=== PATIENT | female | born 1960 | race Caucasian/White ===

== ENCOUNTER 2017-02-13 12:40 | Emergency (ER) | payer OTHER ==
[2017-02-13 12:57] VITALS: BP 153/85
--- NOTE | 2017-02-13 15:09 | ERNOTE ---
Trauma/Assault HPI - Narrative Date of Service: 02/13/17 - General Stated Complaint: FALL FRIDAY-CHEST PAIN Time Seen by Provider: 02/13/17 15:06 Source: patient, RN notes reviewed Exam Limitations: no limitations - Immun/Allergies/Home Medications Immunizations: IMMUNIZATION HX Immunizations Up to Date Yes History of Influenza Vaccine No Hx Pneumococcal Vaccination No Allergies/Adverse Reactions: Allergies naproxen Adverse Reaction (Mild, Verified 08/04/16 21:22) SEVERE STOMACH ACHE AND VOMITING penicillin V potassium [From Pen-Vee K] Adverse Reaction (Mild, Verified 21:22) SEVERE STOMACH ACHE AND VOMITING Home Medications: HOME MEDICATIONS ALPRAZolam [Xanax] 0.5 mg PO DAILY PRN 09/13/15 [Last Taken Unknown] Tiotropium [place] [Spiriva] 1 cap IH DAILY 09/13/15 [Last Taken Unknown] amLODIPine BESYLATE [Norvasc] 5 mg PO DAILY 09/14/15 [Last Taken Unknown] Albuterol Sulfate 2.5 mg IH Q6H PRN 05/28/16 [Last Taken Unknown] Albuterol Sulfate [Ventolin Hfa] 1 - 2 puff IH Q4H PRN 05/28/16 [Last Taken Unknown] Aspirin [Aspirin Enteric Coated] 81 mg PO DAILY 05/28/16 [Last Taken Unknown] Fluticasone Propionate [Flonase] 2 spray NS DAILY 05/28/16 [Last Taken Unknown] Loratadine [Claritin] 10 mg PO DAILY 05/28/16 [Last Taken Unknown] - History of Present Illness Date (Duration): 02/11/17 Narrative: Amena is a 56-year-old female ambulatory to the emergency department for right anterior rib pain due to a fall 2 days ago. The fall occurred while she was walking with a friend. A dog tried to attack her friend, and she fell while trying to keep the dog from attacking. She denies any other injuries. She has not been taking anything for pain. Location Occurred: Reports: street Pain Location: Reports: chest Method of Injury: Reports: fall Loss of Consciousness: Reports: no loss of consciousness, remembers the event Associated Symptoms - Trauma: Denies: headache, dizziness, lightheadedness, trouble walking, neck pain, shortness of breath, abdominal pain, nausea, vomiting Review of Systems - Review of Systems Constitutional: Absent: recent illness, fever, malaise EYE: Present: no symptoms reported ENT: Present: no symptoms reported Respiratory: Present: cough. Absent: shortness of breath, wheezing Cardiology: Absent: palpitations, syncope, edema Gastrointestinal/Abdominal: Absent: nausea, vomiting, abdominal pain Genitourinary: Absent: dysuria, hematuria Musculoskeletal: Absent: back pain, neck pain, joint pain Skin: Absent: rash, lesions, lumps, change in color Neurological: Absent: headache, dizziness/light-headedness, weakness, numbness, tingling Endocrine: Present: no symptoms reported Hematologic/Lymphatic: Absent: easy bruising, easy bleeding Psych: Present: no symptoms reported - Patient's Past Medical History Patient History - Medical: Anxiety, Other Patient History - Cardiac/Respiratory: No pertinent hx, COPD, Hypertension Patient History - Cancer: Breast Patient History - Surgical Procedures: Cancer Surgery, Cataracts, Cholecystectomy, Colonoscopy, EGD, Other Patient History - Other: None LMP (females 10-50): Menopausal - Family History Father Family History - Medical: , No pertinent hx Family History - Cardiac/Respiratory: No pertinent hx Mother Family History - Medical: Diabetes Type 2 Family History - Cardiac/Respiratory: Hypertension Brother Family History - Medical: Diabetes Type 2 Family History - Cardiac/Respiratory: Hypertension Sister Family History - Medical: Diabetes Type 2 Family History - Cardiac/Respiratory: Hypertension - Social History Living Situations: home Abuse History: No History of abuse Psych History: Hx of Anxiety, Current tx/ever been on anti-depressants or anti- anxiety meds Smoking Status: Current every day smoker Alcohol Use: none Drug Use: none - Immunizations Immunizations Up to Date: Yes Hx Pneumococcal Vaccination: No History of Influenza Vaccine: No Physical Exam - Physical Exam General Appearance: Present: wd/wn, alert, no apparent distress Neck: Present: normal inspection, nontender, supple, full range of motion Respiratory: Present: no respiratory distress, normal breath sounds, no accessory muscle use, lungs clear, chest tenderness - right anterior ribs Cardiovascular/Chest: Present: regular rate, rhythm, no murmur, normal peripheral pulses Gastrointestinal/Abdominal: Present: nontender, nondistended, soft Back Exam: Present: normal inspection, normal range of motion, no CVA tenderness , no vertebral tenderness Extremity Exam: Present: normal inspection, normal range of motion, no edema Neurological Exam: Present: alert, oriented, normal mood/affect, no motor/ sensory deficits Skin Exam: Present: normal color, warm/dry ED Progress - Vital Signs Patient's Vital Signs:: I have reviewed the patient's vital signs. Vital Signs: Vital Signs 02/13/17 12:53 Temperature 36.8 C Pulse Rate 88 Respiratory 18 Rate Blood Pressure 153/85 O2 Sat by Pulse 96 Oximetry - X-Ray X-Ray #1 X-Ray: ribs Interpretation: Reviewed by me X-ray Comments: TECHNIQUE: 4 views of the Right sided ribs. COMPARISONS: None available. Ribs Unilateral RT * No definable linear fracture lucency or cortical discontinuity noted. Visualized portions of the chest demonstrates calcified aorta suggestive of atherosclerotic disease. No focal finding. Surgical clips are seen in the right upper quadrant. IMPRESSION: 1. No definable rib fracture noted. 2. Additional comments are as above. Electronically signed by Isabelle Galvan M.D.. - Progress/Reassessment Chief Complaint: Fall Progress:: Unchanged Progress Note-Subjective: Offered rx for pain medication, patient states she does not tolerate well, does have a muscle relaxant at home, suggested trying this at least at HS. Departure Clinical Impression: Rib pain on right side Fall Qualifiers: Encounter type: initial encounter Qualified Code(s): W19.XXXA - Unspecified fall, initial encounter - Departure Disposition: Home self-care Condition: Good Instructions: Rib Contusion Additional Instructions: Tylenol and/or ibuprofen for pain Can also try muscle relaxant at bedtime Heat to sore area Referrals: Monica Armas FNP [Primary Care Provider] -
--- OUTSIDE RECORDS SUMMARY | 2017-02-13 15:19 | XMS REPORT | Continuity of Care Document ---
:1960 Author Organization [facility] ([facility]) Address [address] [place] [address] Phone [phone] Care Team Providers Name Role Phone Celio Andrade Primary Care Provider [phone] Source Comments This disclosure is being made pursuant to the Care Everywhere program, applicable federal and state laws, and may not contain all informaitonavailable regarding this patient.[facility] ([facility]) Active Allergies and Adverse Reactions Allergen Noted Date Severity Reactions Comments Bacitracin Nausea & Vomiting Patient doesn't know the name of antibiotic. Naproxen Nausea & Vomiting Neomycin Nausea & Vomiting Patient doesn't know the name of antibiotic. Penicillins Nausea & Vomiting Polymyxin B Nausea & Vomiting Patient doesn't know the name of antibiotic. Tramadol Hcl Nausea & Vomiting Trazodone Nausea & Vomiting Current Medications Prescription Sig. Disp. Refills Start Date End Date Status metoPROLol succinate 25 Take 1 Tab (25 mg 30 Tab 11 04/12/2015 Active mg XL tablet total) by mouth daily aspirin 81 mg EC tablet Take 1 Tab (81 mg 04/12/2015 Active total) by mouth daily Active Problems Problem Noted Date Essential hypertension 04/12/2015 Chronic hepatitis C without mention of hepatic coma 04/01/2008 Overview: Genotype 1 DIAGNOSIS: Liver, needle biopsy ([id number]; 05/12/08): Chronic hepatitis C with moderate activity and severe bridging fibrosis. Gallbladder, cholecystectomy: Chronic cholecystitis. Cholelithiasis. Comment: Ricky Mccrary M.D. Date reported: 05/27/08 Pathologist (Electronic Signature) Resolved Problems Problem Noted Date Resolved Date Cirrhosis 02/22/2009 11/30/2009 Immunizations Name Dates Previously Given Next Due Influenza, PF 09/06/2009 Influenza, unspecified 07/29/2008 Novel Influenza H1N1 09/06/2009 Social History Tobacco Use Types Packs/Day Years Used Date Current Every Day Smoker Last Filed Vital Signs Vital Sign Reading Time Taken Blood Pressure 123/65 04/19/2015 4:54 PM CDT Pulse 61 04/19/2015 4:24 PM CDT Temperature 36.2 C (97.2 F) 04/19/2015 9:03 AM CDT Respiratory Rate 18 04/19/2015 12:43 PM CDT Height 1.6 m (5' 2.99") 04/19/2015 9:03 AM CDT Weight 68.493 kg (151 lb) 04/19/2015 9:03 AM CDT Body Mass Index 26.76 04/19/2015 9:03 AM CDT Oxygen Saturation 97% 04/19/2015 4:54 PM CDT Plan of Care Health Maintenance Due Date Last Done Comments HCV Screening 1960 Hepatitis B Vaccine (1 of 3 - Primary 1960 Series) Tdap Vaccine 1969 MMR Vaccine 1976 Td Vaccine 1976 Pneumococcal Vaccine (1 of 1 - PPSV23) 1977 Cervical Cancer Screening 1988 Mammogram 1998 Colonoscopy 06/20/2008 Influenza Vaccine: Seasonal (#1) 04/22/2016 09/06/2009, 07/29/2008 Lipid Disorder Screening 04/19/2020 04/19/2015 Results from Last 3 Months Not on file
== END 2017-02-13 15:29 | disposition home or self-care (01) ==
LOC: ER 12:40
DX: R07.81 Pleurodynia (principal); F17.200 Nicotine dependence, unspecified, uncomplicated; W18.31XA Fall on same level due to stepping on an object, initial encounter; Y93.01 Activity, walking, marching and hiking; Y92.414 Local residential or business street as the place of occurrence of the external cause

== ENCOUNTER 2017-03-24 08:49 | Observation (INO) | payer OTHER ==
[2017-03-24] MEDS ORDERED: KETOROLAC TROMETHAMINE 30 MG/ML VIAL IV ONE (09:17)
[2017-03-24] MEDS ORDERED: NORMAL SALINE 1,000 ML IV ONE (09:17)
[2017-03-24] MEDS ORDERED: KETOROLAC TROMETHAMINE 30 MG/ML VIAL ONE (09:19)
--- NOTE | 2017-03-24 09:21 | ERNOTE ---
ENT HPI Presenting Symptoms: other - throat swelling Time Seen by Provider: 03/24/17 09:06 Source: patient Exam Limitations: no limitations - Immun/Allergies/Home Medications Immunizations: IMMUNIZATION HX Immunizations Up to Date Yes History of Influenza Vaccine No Hx Pneumococcal Vaccination No Allergies/Adverse Reactions: Allergies Allergy/AdvReac Type Severity Reaction Status Date / Time naproxen AdvReac Mild SEVERE Verified 03/24/17 14:25 STOMACH ACHE AND VOMITING penicillin V potassium AdvReac Mild SEVERE Verified 03/24/17 14:25 [From Pen-Vee K] STOMACH ACHE AND VOMITING Home Medications: HOME MEDICATIONS Tiotropium [place] [Spiriva] 1 cap IH DAILY 09/13/15 [Last Taken 03/23/17 09:00] amLODIPine BESYLATE [Norvasc] 5 mg PO DAILY 09/14/15 [Last Taken Unknown] Albuterol Sulfate 2.5 mg IH Q6H PRN 05/28/16 [Last Taken 03/23/17 03:00] Albuterol Sulfate [Ventolin Hfa] 1 - 2 puff IH Q4H PRN 05/28/16 [Last Taken Unknown] Aspirin [Aspirin Enteric Coated] 81 mg PO DAILY 05/28/16 [Last Taken 03/24/17 09 :00] Fluticasone Propionate [Flonase] 2 spray NS PRN 05/28/16 [Last Taken Unknown] Loratadine [Claritin] 10 mg PO PRN 05/28/16 [Last Taken Unknown] - History of Present Illness Narrative: Patient started with a sore throat four days ago, was seen in the walk in clinic three days ago, given 'an antibiotic shot' and antibiotic pills. She initially had a fever up to 103 which has resolved, but she continues to have severe throat pain and swelling, has been unable to eat or drink and at times is spitting out her saliva as well. Review of Systems - Review of Systems Constitutional: Present: See HPI, recent illness, fever, chills ENT: Present: throat swelling. Absent: ear pain, nasal drainage Respiratory: Absent: shortness of breath, cough Cardiology: Absent: chest pain Gastrointestinal/Abdominal: Absent: nausea, vomiting, diarrhea, abdominal pain Genitourinary: Present: no symptoms reported Musculoskeletal: Absent: back pain, neck pain Neurological: Present: no symptoms reported - Patient's Past Medical History Patient History - Medical: Anxiety, Other Patient History - Cardiac/Respiratory: No pertinent hx, COPD, Hypertension Patient History - Cancer: Breast Patient History - Surgical Procedures: Cancer Surgery, Cataracts, Cholecystectomy, Colonoscopy, EGD, Other Patient History - Other: None - Family History Father Family History - Medical: , No pertinent hx Family History - Cardiac/Respiratory: No pertinent hx Mother Family History - Medical: Diabetes Type 2 Family History - Cardiac/Respiratory: Hypertension Brother Family History - Medical: Diabetes Type 2 Family History - Cardiac/Respiratory: Hypertension Sister Family History - Medical: Diabetes Type 2 Family History - Cardiac/Respiratory: Hypertension - Social History Living Situations: other Abuse History: No History of abuse Psych History: Hx of Anxiety, Current tx/ever been on anti-depressants or anti- anxiety meds Smoking Status: Current some day smoker Have you smoked in the past 12 months: Yes Do you dip or chew tobacco: No Alcohol Use: none Drug Use: none - Immunizations Immunizations Up to Date: Yes Hx Pneumococcal Vaccination: No History of Influenza Vaccine: No Physical Exam - Physical Exam General Appearance: Present: wd/wn, alert, mild distress Ears, Nose, Throat: Present: pharyngeal swelling - swelling in right lower pharynx, no airway compromise. Absent: pharyngeal erythema Neck: Present: supple, full range of motion, lymphadenopathy (R), other - swelling right submandibular Respiratory: Present: no respiratory distress, normal breath sounds, no accessory muscle use, lungs clear Cardiovascular/Chest: Present: regular rate, rhythm, no murmur Neurological Exam: Present: alert, oriented, normal mood/affect Skin Exam: Present: normal color, warm/dry ED Progress - Results and Orders Patient's Lab Results:: I have reviewed the patient's lab results. - Vital Signs Patient's Vital Signs:: I have reviewed the patient's vital signs. Vital Signs: Vital Signs 03/24/17 08:53 Temperature 37.1 C Pulse Rate 109 H Respiratory 16 Rate Blood Pressure 104/36 O2 Sat by Pulse 99 Oximetry - CT/Ultrasound CT/Ultrasound Narrative: CT neck:soft tissue swelling, pharyngeal and retropharyngeal abscess, see report - Progress/Reassessment Chief Complaint: Sore Throat Progress Note-Subjective: 03/24/17 11:[address] results with radiologist 03/24/17 11:50 discussed results with patient, pain is starting to return 03/24/17 12:[address] Torres (ENT), give decadron 10mgIV and clindamycin IV, will review CT and then decide whether patient can get treated in the office or not explained plan to patient 03/24/17 12:[address] Torres after she reviewed CT, abscess too small at this point to I&D, recommends decadron 10mg bid and IV antibiotics (as patient failed out patient treatment)clidamycin 600mg tid. If not better in 24hrs will need to be reevaluated. 03/24/17 13:00 discussed with slick Marley to admit Departure Clinical Impression: Pharyngeal abscess, Retropharyngeal abscess - Departure Disposition: [facility] Condition: Good
[2017-03-24 09:32] LABS: Hematocrit 41.8 % (37.0-47.0); Hemoglobin 14.4 gm/dL (12.5-16.0); Mean Cell Volume 87.8 fl (78-100); Mean Corpuscular Hemoglobin 30.3 pg (27-31); Mean Corpuscular Hgb Conc 34.4 g/dl (32-36); Mean Platelet Volume 9.1 fl (6.0-9.5); Neutrophil % 78.7 % (42-75.0); Platelet Count 283 K/mm3 (150-450); Red Blood Count 4.76 M/mm3 (4.2-5.4); Red Cell Distribution Width 12.7 % (11.5-14.0); White Blood Count 12.7 K/mm3 (4.0-10.5)
[2017-03-24 09:46] LABS: Albumin * 3.4 gm/dl (3.4-5.0); Anion Gap 13.6 mmol/L (6.8-13.8); BUN/Creatinine Ratio 21.6 (9.0-21.6); Bilirubin, Total 1.1 mg/dL (0.0-1.1); Ca. Corrected For Albumin 9.4 mg/dL (8.4-10.2); Calcium * 9.2 mg/dL (7.9-10.9); Carbon Dioxide 27.2 mmol/L (24-32.6); Potassium 3.8 mmol/L (3.4-4.6); Total Protein 8.4 gm/dL (6.2-8.2)
[2017-03-24] MEDS ORDERED: CLINDAMYCIN PHOSPHATE 150 MG/ML VIAL IV ONE (12:04)
[2017-03-24] MEDS ORDERED: DEXAMETHASONE SOD PHOSPHATE 10 MG/ML VIAL IV ONE (12:04)
[2017-03-24] MEDS ORDERED: MORPHINE SULFATE 4 MG/ML SYRG IV ONE (12:06)
[2017-03-24] MEDS ORDERED: DEXAMETHASONE SOD PHOSPHATE 10 MG/ML VIAL ONE (12:06)
[2017-03-24] MEDS ORDERED: MORPHINE SULFATE 4 MG/ML SYRG ONE (12:07)
[2017-03-24] MEDS ORDERED: CLINDAMYCIN PHOSPHATE 600 MG in DEXTROSE 5 % IN WATER 100 ML IV ONE ×2 (12:30)
[2017-03-24] MEDS ORDERED: ACETAMINOPHEN 500 MG TABLET PO PRN (13:13)
[2017-03-24] MEDS ORDERED: MORPHINE SULFATE 2 MG/ML DISP.SYRIN IV PRN (13:13)
[2017-03-24] MEDS ORDERED: PROMETHAZINE HCL 5 MG in DEXTROSE 5 % IN WATER 50 ML IV PRN ×2 (13:13)
[2017-03-24] MEDS ORDERED: ONDANSETRON HCL/PF 2 MG/ML VIAL IV PRN (13:13)
[2017-03-24] MEDS ORDERED: CLINDAMYCIN PHOSPHATE 600 MG in DEXTROSE 5 % IN WATER 100 ML IV SCH ×2 (13:15)
[2017-03-24] MEDS: KETOROLAC TROMETHAMINE 30 MG/ML VIAL IV PRN (17:03)
--- NOTE | 2017-03-24 19:52 | HP ---
Chief Complaint - Chief Complaint Date of Service: 03/24/17 Time of Service: 19:44 Chief Complaint: " Difficulty swallowing, painfull swallowing, throat pain, phlegm". Source of HPI-Pt reliable, ERP Report. History of Present Illness: Ms. Forte is a 57-yr-old [facility] pt DESTINY Benitez, with a PMH of: Anxiety, breast Ca, COPD, HTN, Hep. C & RT shoulder injury. Pt was seen at the walk-in clinic on Wednesday 03/21 due to symptoms of: sore throat, painful swallowing and RT ear pain that had gone on for 1 day. She received Rocephin 1 gm IM at the office and she was discharged on Cefdinir 600mg daily x 10 days. She states that she took the medication as ordered but then on Friday, she had a lot of difficulty swallowing the pills and at times 'felt like the pills were stuck in her throat.' She also noticed that she was developing swelling on the RT side of the neck and therefore chose to come to the ED today. She denies fevers & chills but states she had some difficulty breathing at times. She states that she continued to have throat pain and difficulty swallowing foods or liquids.During evaluation at the ED today, the Neck CT obtained showed she had Pharyngitis along with pharyngeal and epiglottis abscess. The ERP discussed the case with the ENT physician Dr. Torres, and she recommended treatment with IV Decadron and Clindamycin and for pt to be admitted to the hospital for observation especially since she had failed outpatient treatment. - Patient's Past Medical History Patient History - Medical: Anxiety, Other - Hepatitis C, Patient History - Cardiac/Respiratory: No pertinent hx, COPD, Hypertension Patient History - Cancer: Breast Patient History - Surgical Procedures: Cancer Surgery, Cataracts, Cholecystectomy, Colonoscopy, EGD, Other - RT mastectomy Patient History - Other: None - Family History Father Family History - Medical: , No pertinent hx Family History - Cardiac/Respiratory: No pertinent hx Family History - Cancer: Lymphoma, Other Mother Family History - Medical: Diabetes Type 2 Family History - Cardiac/Respiratory: Hypertension Brother Family History - Medical: Diabetes Type 2 Family History - Cardiac/Respiratory: Hypertension Sister Family History - Medical: Diabetes Type 2 Family History - Cardiac/Respiratory: Hypertension - Social History Living Situations: other Abuse History: No History of abuse Psych History: Hx of Anxiety, Current tx/ever been on anti-depressants or anti- anxiety meds Smoking Status: Current some day smoker Have you smoked in the past 12 months: Yes Do you dip or chew tobacco: No Patient requests Smoking Cessation Consult: Yes Initiate information on Smoking Cessation: Yes Alcohol Use: none Drug Use: none - Immunizations Immunizations Up to Date: Yes Hx Pneumococcal Vaccination: No History of Influenza Vaccine: No Review Of Systems (GEN) - Review of Systems Generalized/Overall Review: Present: Chills, Fever EENTM: Present: Throat Pain, Throat Swelling Respiratory: Absent: Cough, Shortness of Breath, Wheezing Cardiac: Absent: Chest Pain, Edema, Palpitations, Syncope Abdominal: Present: Nausea. Absent: Vomiting, Hematemesis Genitourinary: Absent: Burning, Urgency, Frequency Musculoskeletal: Present: Neck Pain. Absent: Joint Pain, Back Pain, Joint Swelling, Muscle Pain Neurological: Absent: Headache, Anxiety, Depressed, Emotional Problems Skin: Absent: Dryness, Lesions, Bruising Endocrine: Present: Intolerance to Cold Misc: All systems neg except as marked Immunizations: IMMUNIZATION HX Immunizations Up to Date Yes History of Influenza Vaccine No Hx Pneumococcal Vaccination No Allergies/Adverse Reactions: Allergies Allergy/AdvReac Type Severity Reaction Status Date / Time naproxen AdvReac Mild SEVERE Verified 03/24/17 14:25 STOMACH ACHE AND VOMITING penicillin V potassium AdvReac Mild SEVERE Verified 03/24/17 14:25 [From Pen-Vee K] STOMACH ACHE AND VOMITING Home Medications: HOME MEDICATIONS Tiotropium [place] [Spiriva] 1 cap IH DAILY 09/13/15 [Last Taken 03/23/17 09:00] amLODIPine BESYLATE [Norvasc] 5 mg PO DAILY 09/14/15 [Last Taken Unknown] Albuterol Sulfate 2.5 mg IH Q6H PRN 05/28/16 [Last Taken 03/23/17 03:00] Albuterol Sulfate [Ventolin Hfa] 1 - 2 puff IH Q4H PRN 05/28/16 [Last Taken Unknown] Aspirin [Aspirin Enteric Coated] 81 mg PO DAILY 05/28/16 [Last Taken 03/24/17 09 :00] Fluticasone Propionate [Flonase] 2 spray NS PRN 05/28/16 [Last Taken Unknown] Loratadine [Claritin] 10 mg PO PRN 05/28/16 [Last Taken Unknown] Exam - Exam Vital Signs: Vital Signs - Last Taken Temp 36.8 C 03/24/17 19:06 Pulse 85 03/24/17 19:06 Resp 18 03/24/17 19:06 BP 162/75 03/24/17 19:06 Pulse Ox 96 03/24/17 19:06 Constitutional: Present: Alert, Oriented x3, Cooperative, No distress ENT Exam: Present: hearing grossly normal, pharyngeal erythema, muffled/hoarse voice, dry mucous membranes. Absent: nasal congestion, nasal drainage Eye Exam: bilateral eye: normal inspection, PERRL Neck: Present: full range of motion, supple, normal inspection Back Exam: Present: normal inspection, no CVA tenderness Breasts: Present: Exam deferred Respiratory: Present: lungs clear, no accessory muscle use, No wheezing Cardiovascular/Chest: Present: normal peripheral pulses, regular rate, rhythm, no chest tenderness, no edema, no murmur Abdomen: Present: Normal bowel sounds, soft, nontender /Rectal: Present: Exam deferred Extremity: Present: normal range of motion, non-tender, normal inspection Skin Exam: Present: normal color, warm/dry, no cyanosis Lymphatic: Present: no adenopathy Neurologic: Present: no motor/sensory deficits, alert, oriented x 3. Absent: dizzy/light-headedness Appearance: Present: appropriate appearance, appropriate insight Eye contact: Present: cooperative, good eye contact, normal speech Thoughts: Present: normal thought pattern, no apparent hallucination Diagnostic Studies: Laboratory Results WBC 12.7 K/mm3 (4.0-10.5) H 03/24/17 09:25 RBC 4.76 M/mm3 (4.2-5.4) 03/24/17 09:25 Hgb 14.4 gm/dL (12.5-16.0) 03/24/17 09:25 Hct 41.8 % (37.0-47.0) 03/24/17 09:25 MCV 87.8 fl (78-100) 03/24/17 09:25 MCH 30.3 pg (27-31) 03/24/17 09:25 MCHC 34.4 g/dl (32-36) 03/24/17 09:25 RDW 12.7 % (11.5-14.0) 03/24/17 09:25 Plt Count 283 K/mm3 (150-450) 03/24/17 09:25 MPV 9.1 fl (6.0-9.5) 03/24/17 09:25 Immature Gran % (Auto) 0.50 % (0.001-0.429) H 03/24/17 09:25 Immature Gran # (Auto) 0.06 K/mm3 (0.000-0.0310) H 03/24/17 09:25 Neutrophils % 78.7 % (42-75.0) H 03/24/17 09:25 Lymphocytes % 10.0 % (20-51) L 03/24/17 09:25 Monocytes % 9.5 % (0.0-9) H 03/24/17 09:25 Eosinophils % 0.9 % (0.0-3.0) 03/24/17 09:25 Basophils % 0.4 % (0.0-1.0) 03/24/17 09:25 Nucleated RBC % 0.0 k/mm3 (0-1) 03/24/17 09:25 Neutrophils # 10.0 K/mm3 (1.3-6.0) H 03/24/17 09:25 Lymphocytes # 1.3 k/mm3 (1.5-3.5) L 03/24/17 09:25 Monocytes # 1.2 k/mm3 (0.0-1.0) H 03/24/17 09:25 Eosinophils # 0.1 k/mm3 (0.0-0.7) 03/24/17 09:25 Absolute Basophils 0.1 k/mm3 (0.0-0.1) 03/24/17 09:25 Sodium 137 mmol/L (132-142) 03/24/17 09:25 Plasma Sodium 137 mmol/L (130-142) 03/24/17 09:25 Potassium 3.8 mmol/L (3.4-4.6) 03/24/17 09:25 Chloride 100 mmol/L (97-106) 03/24/17 09:25 Carbon Dioxide 27.2 mmol/L (24-32.6) 03/24/17 09:25 Anion Gap 13.6 mmol/L (6.8-13.8) 03/24/17 09:25 BUN 16 mg/dL (3-23) 03/24/17 09:25 Creatinine 0.74 mg/dL (0.4-1.4) 03/24/17 09:25 Est GFR (Non-Af Amer) 86 mL/min (60-130) 03/24/17 09:25 BUN/Creatinine Ratio 21.6 (9.0-21.6) 03/24/17 09:25 Random Glucose 104 mg/dL (70-110) 03/24/17 09:25 Calcium 9.2 mg/dL (7.9-10.9) 03/24/17 09:25 Calcium Adj for Albumin 9.4 mg/dL (8.4-10.2) 03/24/17 09:25 Total Bilirubin 1.1 mg/dL (0.0-1.1) 03/24/17 09:25 AST 18 U/L (0-48) 03/24/17 09:25 ALT 18 U/L (19-67) L 03/24/17 09:25 Alkaline Phosphatase 121 U/L (50-170) 03/24/17 09:25 Total Protein 8.4 gm/dL (6.2-8.2) H 03/24/17 09:25 Albumin 3.4 gm/dl (3.4-5.0) 03/24/17 09:25 Assessment/Plan - Assessment/Plan (1) Pharyngeal abscess Assessment: The ERP spoke with the ENT Dr. Torres about the CT of the neck findings. The plan is to admit pt under observation and administer IV Decadron and Clindamycin due to failure to outpatient treatment, and to evaluate response to parenteral treatment after 24 hours. The pharyngeal & epiglottis abscess was also determined to be too small for an I/D. Problem: Acute (2) Streptococcal pharyngitis Assessment: She tested positive for rapid strep test at the clinic. Continues to have sore throat, hoarseness but no fevers since Wednesday 03/21. Provide supportive cares with IV analgesics, IFV hydration and to give time to see if IV decadron with lessen the swelling. Continue with IV Clindamycin. CBC in am. Problem: Acute (3) HTN (hypertension) Problem: Chronic Qualifiers: Hypertension type: essential hypertension Qualified Code(s): I10 - Essential (primary) hypertension (4) COPD (chronic obstructive pulmonary disease) Problem: Chronic Qualifiers: COPD type: COPD with acute exacerbation Qualified Code(s): J44.1 - Chronic obstructive pulmonary disease with (acute) exacerbation
[2017-03-24] MEDS: CLINDAMYCIN PHOSPHATE 600 MG in DEXTROSE 5 % IN WATER 100 ML IV SCH ×2 (20:18)
[2017-03-24] MEDS ORDERED: DEXAMETHASONE SOD PHOSPHATE 10 MG/ML VIAL IV SCH (22:00)
[2017-03-25] MEDS: KETOROLAC TROMETHAMINE 30 MG/ML VIAL IV PRN (02:12)
[2017-03-25] MEDS: CLINDAMYCIN PHOSPHATE 600 MG in DEXTROSE 5 % IN WATER 100 ML IV SCH ×2 (04:34)
[2017-03-25 05:39] LABS: Hematocrit 37.5 % (37.0-47.0); Mean Cell Volume 86.4 fl (78-100); Mean Corpuscular Hgb Conc 34.7 g/dl (32-36); Mean Platelet Volume 9.4 fl (6.0-9.5); Neutrophil # 11.1 K/mm3 (1.3-6.0); Neutrophil % 89.5 % (42-75.0); Platelet Count 306 K/mm3 (150-450); Red Blood Count 4.34 M/mm3 (4.2-5.4); Red Cell Distribution Width 12.3 % (11.5-14.0); White Blood Count 12.4 K/mm3 (4.0-10.5)
[2017-03-25 06:14] VITALS: BP 149/71
--- NOTE | 2017-03-25 08:46 | DS ---
(1) Pharyngeal abscess Problem: Acute (2) Pharyngitis Problem: Acute Description of Stay: ADMISSION DATE: 03/24/2017 DISCHARGE DATE: 03/25/2017 ADMISSION HPI by DESTINY Hicks: Ms. Forte is a 57-yr-old [facility] pt DESTINY Benitez, with a PMH of: Anxiety, breast Ca, COPD, HTN, Hep. C & RT shoulder injury. Pt was seen at the walk-in clinic on Wednesday 03/21 due to symptoms of: sore throat, painful swallowing and RT ear pain that had gone on for 1 day. She received Rocephin 1 gm IM at the office and she was discharged on Cefdinir 600mg daily x 10 days. She states that she took the medication as ordered but then on Friday, she had a lot of difficulty swallowing the pills and at times 'felt like the pills were stuck in her throat.' She also noticed that she was developing swelling on the RT side of the neck and therefore chose to come to the ED today. She denies fevers & chills but states she had some difficulty breathing at times. She states that she continued to have throat pain and difficulty swallowing foods or liquids.During evaluation at the ED today, the Neck CT obtained showed she had Pharyngitis along with pharyngeal and epiglottis abscess. The ERP discussed the case with the ENT physician Dr. Torres, and she recommended treatment with IV Decadron and Clindamycin and for pt to be admitted to the hospital for observation especially since she had failed outpatient treatment. HOSPITAL COURSE: The patient presented to the [facility] emergency department complaining of a sore throat and inability to eat or drink secondary to severe pain. A CT scan of the neck with IV contrast was completed in the emergency department. The provider in the emergency department, Dr. Javier, discussed the case and sent the CT images to the on-call ENT physician Dr. Torres. Dr. Torres felt that the abscess was too small at this point to I&D and she recommended treatment with clindamycin and Decadron. The patient was monitored overnight and overall had an uneventful admission. The morning of discharge the patient stated that she was feeling much better and she was able to eat and drink with only minimal discomfort. The patient was discharged home in stable condition and instructed to complete 9 additional days of oral clindamycin as well as 4 additional days of oral dexamethasone. Per the patients preference/request, all medications were prescribed in the liquid form. The patient was also instructed to follow- up with her primary care provider, Monica Armas, within 1 week and to call or return to the emergency department if issues or concerns arise. FOLLOW-UP APPOINTMENTS: PCPMonica, within 1 week NEW OR CHANGED MEDICATIONS: Clindamycin liquid 300mg PO Q6H X 9 additional days Dexamethasone liquid 60mL PO BID X 4 additional days Morphine liquid 2mg PO Q2H PRN severe pain DISCONTINUED MEDICATIONS: None RADIOLOGY REPORTS: Neck CT with IV contrast on 03/24/2017 showed: Extensive pharyngitis with associated irregular pharyngeal abscess insinuating itself through the right side of the pharynx from the tongue base to below the level of the epiglottis. There is also communication with a linear fluid collection extending into the retropharyngeal soft tissues measuring 1.5 X 0.8 cm. this would indicate a potential communication with the mediastinum the fluid collection is located approximately 7 cm above the thoracic inlet. Procedures Performed: none Discharge Disposition: Home self care Disposition: Home self-care Condition: Stable Discharge Activity: Activity as tolerated Discharge Diet: Other - Regular diet as tolerated Referrals: Monica Armas FNP [Primary Care Provider] - Additional Patient Instructions (free text): Follow-up with PCP, Monica Armas, within 1 week Prescriptions (Any new or edited meds): Clindamycin Palmitate [Cleocin Suspension] 300 mg PO Q6H #720 ml Dexamethasone [Decadron Elixir] 60 ml PO BID #480 btl Morphine Sulfate [Morphine Sulfate 10 MG/5ML Oral Solution] 2 mg PO Q2H PRN #30 ml PRN Reason: Severe Pain Complete Home Medications List: Complete Home Medication List: Tiotropium [place] [Spiriva] 1 cap IH DAILY 09/13/15 amLODIPine BESYLATE [Norvasc] 5 mg PO DAILY 09/14/15 Albuterol Sulfate 2.5 mg IH Q6H PRN 05/28/16 Albuterol Sulfate [Ventolin Hfa] 1 - 2 puff IH Q4H PRN 05/28/16 Aspirin [Aspirin Enteric Coated] 81 mg PO DAILY 05/28/16 Fluticasone Propionate [Flonase] 2 spray NS PRN 05/28/16 Loratadine [Claritin] 10 mg PO PRN 05/28/16 Clindamycin Palmitate [Cleocin Suspension] 300 mg PO Q6H #720 ml 03/25/17 Dexamethasone [Decadron Elixir] 60 ml PO BID #480 btl 03/25/17 Morphine Sulfate [Morphine Sulfate 10 MG/5ML Oral Solution] 2 mg PO Q2H PRN #30 ml 03/25/17
[2017-03-25] MEDS ORDERED: ASPIRIN 81 MG TABLET.DR PO SCH (09:00)
[2017-03-25] MEDS ORDERED: amLODIPine BESYLATE 5 MG TABLET PO SCH (09:00)
== END 2017-03-25 10:18 | disposition home or self-care (01) ==
LOC: ER 08:49 → MS 13:05
PROVIDERS: ADMIT Internal Medicine; ATTEND Internal Medicine
DX: J39.1 Other abscess of pharynx (principal); J38.7 Other diseases of larynx; Z72.0 Tobacco use; J44.9 Chronic obstructive pulmonary disease, unspecified; I10 Essential (primary) hypertension; F41.9 Anxiety disorder, unspecified
CPT/HCPCS: 36415; 70491; 80053; 85025; 96365; 96366; 96375; 96376; 99284; G0378